=== PATIENT | male | born 1990 ===

== ENCOUNTER 2017-03-16 20:32 | Inpatient (IN) | payer BC, MEDICAID ==
--- NOTE | 2017-03-16 21:25 | ED PDOC ---
HPI: Psych/Substance Abuse Time Seen by Provider: 03/16/17 21:05 Chief Complaint (Nursing): Psychiatric Evaluation Chief Complaint (Provider): suicidal ideations History Per: Patient History/Exam Limitations: no limitations Additional History Per: Patient Additional Complaint(s): 27 y/o male history of alcohol abuse, anxiety disorder, bipolar self-presents with suicidal ideations. Patient states he was discharged from [facility] 4 days ago, and was not able to fill his Lexapro medication. He notes today to have suicidal ideations since then, worse today, with plan to jump in water, which caused him to drink alcohol again. Denies homicidal ideations, hallucinations, acute medical complaints. Past Medical History Reviewed: Historical Data, Nursing Documentation, Vital Signs Vital Signs: Last Vital Signs Temp 98.7 F 03/16/17 20:50 Pulse 99 H 03/16/17 20:50 Resp 16 03/16/17 20:50 BP 128/75 03/16/17 20:50 Pulse Ox 98 03/16/17 20:50 - Medical History PMH: Anxiety, Asthma (Pt stated hx asthma as a child.), Bipolar Disorder, Depression (Psychiatrist in [place]), Schizophrenia, Seizures (Pt reports experiencing seizures r/t etoh withdrawal, last 3 months ago.) Denies: Diabetes, Hepatitis, HIV, HTN, Chronic Kidney Disease, Sexually Transmitted Disease - Surgical History Surgical History: No Surg Hx - Family History Family History: States: Unknown Family Hx - Living Arrangements Living Arrangements: With Family - Social History Current smoker - smoking cessation education provided: Yes SMOKER/PACKS PER DAY:: 1 Alcohol: > 2 Drinks/Day Drugs: Cannabis - Home Medications Home Medications: Ambulatory Orders Medication Instructions Recorded Escitalopram [Lexapro] 10 mg PO DAILY 03/17/17 - Allergies Allergies/Adverse Reactions: Allergies Allergy/AdvReac Type Severity Reaction Status Date / Time No Known Allergies Allergy Verified 07/22/16 10:26 Review of Systems ROS Statement: Except As Marked, All Systems Reviewed And Found Negative Psych: Positive for: Depression, Suicidal ideation Physical Exam - Reviewed Nursing Documentation Reviewed: Yes Vital Signs Reviewed: Yes - Physical Exam Appears: Positive for: Well, Non-toxic, No Acute Distress Head Exam: Positive for: ATRAUMATIC, NORMAL INSPECTION, NORMOCEPHALIC Skin: Positive for: Normal Color Eye Exam: Positive for: Normal appearance ENT: Positive for: Normal ENT Inspection Cardiovascular/Chest: Positive for: Regular Rate, Rhythm Respiratory: Positive for: Normal Breath Sounds Gastrointestinal/Abdominal: Positive for: Normal Exam Back: Positive for: Normal Inspection Extremity: Positive for: Normal ROM Neurologic/Psych: Positive for: Alert, Oriented - Laboratory Results Result Diagrams: 03/16/17 22:27 03/16/17 22:27 - ECG O2 Sat by Pulse Oximetry: 98 Pulse Ox Interpretation: Normal - Radiology X-Ray: Viewed By Me X-Ray Interpretation: No Acute Disease - Progress ED Course And Treament: labs, urine, crisis eval 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 Carreno Medical Decision Making Medical Decision Making: Patient medically stable for psych admission. Disposition - Clinical Impression Clinical Impression: Bipolar disorder - Patient ED Disposition Is Patient to be Admitted: Yes - Disposition Disposition Time: 02:54 Condition: STABLE - Pt Status Changed To: Hospital Disposition Of: Inpatient - Admit Certification Admit to Inpatient:: After my assessment, the patient will require hospitalization for at least two midnights. This is because of the severity of symptoms shown, intensity of services needed, and/or the medical risk in this patient being treated as an outpatient. - POA Present On Arrival: None
[2017-03-16 22:33] LABS: BASO # 0.1 K/uL (0.0-0.2); BASO % 0.7 % (0.0-2.0); EOS # 0.5 K/uL (0.0-0.7); EOS % 5.5 % (0.0-4.0); HEMATOCRIT 44.3 % (35.0-51.0); LYMPH % 32.4 % (20.0-40.0); MEAN CORPUSCULAR HEMOGLOBIN 29.1 pg (27.0-31.0); MEAN CORPUSCULAR HGB CONC 33.4 g/dL (33.0-37.0); MEAN PLATELET VOLUME 8.4 fl (7.2-11.7); MONO # 0.7 K/uL (0.0-0.8); MONO % 7.4 % (0.0-10.0); NEUT # 5.1 K/uL (1.8-7.0); RED CELL DISTRIBUTION WIDTH 13.4 % (11.5-14.5); WHITE BLOOD COUNT 9.4 K/uL (4.8-10.8)
[2017-03-16 22:42] LABS: GLUCOSE,RANDOM 83 mg/dL (75-110)
[2017-03-16 22:43] LABS: ALB/GLOB RATIO 1.5 (1.0-2.1); ALCOHOL SERUM 156 mg/dl (0-10); ALKALINE PHOSPHATASE 92 U/L (38-126); ALT/SGPT 40 U/L (21-72); AST/SGOT 40 U/L (17-59); BILIRUBIN,TOTAL 0.3 mg/dl (0.2-1.3); BLOOD UREA NITROGEN 14 mg/dl (9-20); CALCIUM 8.7 mg/dL (8.4-10.2); CARBON DIOXIDE 23 mmol/L (22-30); CHLORIDE 108 mmol/L (98-107); GFR AFRICAN-AMERICAN > 60; SODIUM 144 mmol/l (132-148)
[2017-03-17 01:39] LABS: RBC URINE 2 /hpf (0-3); URINE BILIRUBIN NEGATIVE (NEGATIVE); URINE BLOOD NEGATIVE (NEGATIVE); URINE COLOR YELLOW (YELLOW); URINE GLUCOSE (UA) NEG (Normal); URINE KETONE NEGATIVE (NEGATIVE); URINE LEUKOCYTE ESTERASE NEG Leu/uL (Negative); URINE PROTEIN NEGATIVE (NEGATIVE); URINE UROBILINOGEN 0.2-1.0 mg/dL (0.2-1.0); WBC URINE < 1 /hpf (0-5)
[2017-03-17 03:10] VITALS: O2SAT 98
[2017-03-17] MEDS ORDERED: DiphenhydrAMINE 50 mg/ml Inj IM PRN (03:29)
[2017-03-17] MEDS ORDERED: Alum-Mag Hydrox-Simethicone Susp (30 mL) PO PRN (03:29)
[2017-03-17] MEDS ORDERED: Magnesium Hydroxide Susp 30 ml UD PO PRN (03:29)
[2017-03-17 07:36] LABS: T4 5.34 ug/dl (5.5-11.0)
[2017-03-17 07:50] LABS: THYROID STIMULATING HORMONE 2.99 mIU/ML (0.46-4.68)
--- NOTE | 2017-03-17 10:13 | RAD ---
HISTORY: clearance COMPARISON: No prior. FINDINGS: LUNGS: No active pulmonary disease. PLEURA: No significant pleural effusion identified, no pneumothorax apparent. CARDIOVASCULAR: Normal. OSSEOUS STRUCTURES: No significant abnormalities. VISUALIZED UPPER ABDOMEN: Normal. OTHER FINDINGS: None. IMPRESSION: No active disease.
--- NOTE | 2017-03-17 13:24 | PCM.PSYCH ---
Initial Psychiatric Evaluation - Initial Psychiatric Evaluation Type of Admission: Voluntary Legal Status: Capacity Chief Complaint (in patient's own words): i messed up Patient's Reaction to Hospitalization: cooperative History of Present Illness and Precipitating Events: pt has history of alcohol dependence, mood disorder- depression. was recently with a prolonged hospitalization and [facility] and was enrolled in a [facility] program at [facility]. pt states he could not fill his medications, became frustrated and starting consuming alcohol again- reports drinking a pint of vodka daily for previous three days. he reports he then started to feel depressed, like a failure, comparing self to his peers. he reports having suicidal thoughts, but did not want to disappoint his mother. he sought help. he is denying any suicidal or homicidal thoughts at this time. Current Medications: Active Medications Generic Name Dose Route Start Last Admin Trade Name Freq PRN Reason Stop Dose Admin Acetaminophen 650 mg 03/17/17 03:29 Tylenol 325mg Tab PO Q4 PRN Pain, moderate (4-7) Al Hydrox/Mg Hydrox/Simethicone 30 ml 03/17/17 03:29 Maalox Plus 30 Ml PO Q4 PRN Dyspepsia Diphenhydramine HCl 50 mg 03/17/17 03:29 Benadryl IM Q6 PRN Extrapyramidal S/S Unable PO Diphenhydramine HCl 50 mg 03/17/17 03:29 Benadryl PO Q6 PRN Extrapyramidal Symptoms Diphenhydramine HCl 50 mg 03/17/17 03:32 Benadryl PO HS PRN Sleep Escitalopram Oxalate 10 mg 03/17/17 09:45 Lexapro PO DAILY NELLY Folic Acid 1 mg 03/17/17 09:45 Folic Acid PO DAILY NELLY Haloperidol 5 mg 03/17/17 03:29 Haldol PO Q4 PRN Agitation Haloperidol Lactate 5 mg 03/17/17 03:29 Haldol IM Q4 PRN Agitation, Unable to Take PO Lorazepam 2 mg 03/17/17 03:29 Ativan IM Q4 PRN Anxiety/Agitation,Unable PO Lorazepam 2 mg 03/17/17 03:29 Ativan PO Q4 PRN Anxiety/Agitation Magnesium Hydroxide 30 ml 03/17/17 03:29 Milk Of Magnesia PO HS PRN Constipation Multivitamins/Minerals 1 tab 03/17/17 09:45 Therapeutic-M Tab PO DAILY NELLY Nicotine 1 patch 03/17/17 09:00 03/17/17 09:53 Nicoderm Cq TD 1 patch DAILY NELLY Administration Thiamine HCl 100 mg 03/17/17 09:45 Vitamin B1 Tab PO DAILY NELLY Trazodone HCl 100 mg 03/17/17 22:00 Desyrel PO HS NELLY Past Psychiatric History - Past Psychiatric History Previous Treatment History: Inpatient Prior Professional Help: multiple previous admissions At [facility]: [facility] last week. History of Abuse: reports he feels traumatized by his past- eludes to his own substance use. not revealing any trauma. History of ETOH/Drug Use: smokes cigarettes- 1/2 to 1 pack daily. reports recent alcohol use. has reported abuse of multiple substances in the past without uds results that support, but at this time states only alcohol. History of Family Illness: denies Pertinent Medical Hx (Current Medical&Sleep Prob, Allergies): Allergies Allergy/AdvReac Type Severity Reaction Status Date / Time No Known Allergies Allergy Verified 07/22/16 10:26 Escitalopram [Lexapro] 10 mg PO DAILY 03/17/17 Review of Systems - Psychiatric Psychiatric: As Per HPI Mental Status Examination - Personal Presentation Personal Presentation: Looks stated age - Affect Affect: Depressed - Motor Activity Motor Activity: Calm - Reliability in Providing Information Reliability in Providing Information: Good - Speech Speech: Organized - Mood Mood: Depressed - Formal Thought Process Formal Thought Process: No Impairment - Obsessions/Compulsions Obsessions: No Compulsions: No - Cognitive Functions Orientation: Person, Place, Situation, Time Sensorium: Alert Attention/Concentration: Attentive Abstract Thinking: [place] Estimate of Intelligence: Average Judgement: Intact, as evidence by: Insight regarding need for hospitalization Memory: Recent intact, as evidence by: Ability to recall events of the day, Remote intact, as evidenced by: Abilit to recall sig. life events - Risk Risk: Suicidal (reports thoughts, previous attempts. 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
--- NOTE | 2017-03-17 18:32 | CP.PCM.CON ---
History of Present Illness - History of Present Illness History of Present Illness: Reason for consult: per hospital protocol HPI: 27 year old male PMH multiple psychiatric admissions for depression and substance abuse with ETOH. Patient is not on any other medications. Currently on ativan, thiamine, and folic acid as inpatient for possible withdrawal. Vitals are stable, no acute distress. ROS: per HPI, 12 systems reviewed and negative PMH: depression and substance abuse PSH: none FH: none SH: ETOH abuse, +marijuana Allergies: NKDA Vitals: reviewed and currently stable Exam: GEN: WDWN, alert, cooperative HEENT: NCAT, PERRL, EOMI NECK: supple, no JVD, no lymphadenopathy CARDIAC: +S1S2 RRR LUNG: CTAB No WRR ABD: SOFT NT ND BSX4 NO MASSES NO HSM EXT: +pedal pulses, equal strength NEURO: AAOx3 SKIN warm, dry PSYCH normal mood, normal affect Labs: 03/16/17 22:27 03/16/17 22:27 Active Medications: 03/17/17 03:29 Acetaminophen [Tylenol 325mg tab] 650 mg PO Q4 PRN Aluminum Hydroxide/Magnesium [Maalox Plus 30 ml] 30 ml PO Q4 PRN DiphenhydrAMINE [Benadryl] 50 mg IM Q6 PRN DiphenhydrAMINE [Benadryl] 50 mg PO Q6 PRN Haloperidol Lactate [Haldol] 5 mg IM Q4 PRN Haloperidol [Haldol] 5 mg PO Q4 PRN LORazepam [Ativan] 2 mg IM Q4 PRN LORazepam [Ativan] 2 mg PO Q4 PRN Magnesium Hydroxide [Milk Of Magnesia] 30 ml PO HS PRN 03/17/17 03:32 DiphenhydrAMINE [Benadryl] 50 mg PO HS PRN 03/17/17 09:00 Nicotine 14 mg/24 hr [Nicoderm CQ] 1 patch TD DAILY 03/17/17 09:45 Escitalopram [Lexapro] 10 mg PO DAILY Folic Acid 1 mg PO DAILY Multimineral/Multivitamin [Therapeutic-M Tab] 1 tab PO DAILY Thiamine [Vitamin B1 Tab] 100 mg PO DAILY 03/17/17 22:00 traZODone [Desyrel] 100 mg PO HS Assessment and Plan: 27 year old male PMH multiple psychiatric admissions for depression and substance abuse with ETOH. Patient is not on any other medications. Currently on ativan, thiamine, and folic acid as inpatient for possible withdrawal. Vitals are stable, no acute distress. Depression management per psychiatric team ETOH abuse Ativan, folic acid, thiamine Past Patient History - Infectious Disease Hx of Infectious Diseases: None - Tetanus Immunizations Tetanus Immunization: Unknown - Past Medical History & Family History Past Medical History?: Yes - Past Social History Alcohol: > 2 Drinks/Day Drugs: Cannabis - CARDIAC Hx Hypertension: No - PULMONARY Hx Asthma: Yes (Pt stated hx asthma as a child.) - NEUROLOGICAL Hx Seizures: Yes (Pt reports experiencing seizures r/t etoh withdrawal, last 3 months ago.) - HEENT Hx HEENT Problems: No - RENAL Hx Chronic Kidney Disease: No - ENDOCRINE/METABOLIC Hx Endocrine Disorders: No - HEMATOLOGICAL/ONCOLOGICAL Hx Human Immunodeficiency Virus (HIV): No - INTEGUMENTARY Hx Dermatological Problems: No - MUSCULOSKELETAL/RHEUMATOLOGICAL Hx Musculoskeletal Disorders: No Hx Falls: No - GASTROINTESTINAL Hx Gastrointestinal Disorders: No - GENITOURINARY/GYNECOLOGICAL Hx Sexually Transmitted Disorders: No - PSYCHIATRIC Hx Substance Use: Yes - SURGICAL HISTORY Hx Surgeries: Yes Other/Comment: repair of Lip laceration - ANESTHESIA Hx Anesthesia: Yes (local anesthesia) Hx Anesthesia Reactions: No Hx Malignant Hyperthermia: No Has any member of the family had a problem w/ anesthesia?: No Meds Allergies/Adverse Reactions: Allergies Allergy/AdvReac Type Severity Reaction Status Date / Time No Known Allergies Allergy Verified 07/22/16 10:26 - Medications Medications: Current Medications Acetaminophen (Tylenol 325mg Tab) 650 mg PO Q4 PRN PRN Reason: Pain, moderate (4-7) Al Hydrox/Mg Hydrox/Simethicone (Maalox Plus 30 Ml) 30 ml PO Q4 PRN PRN Reason: Dyspepsia Diphenhydramine HCl (Benadryl) 50 mg IM Q6 PRN PRN Reason: Extrapyramidal S/S Unable PO Diphenhydramine HCl (Benadryl) 50 mg PO Q6 PRN PRN Reason: Extrapyramidal Symptoms Diphenhydramine HCl (Benadryl) 50 mg PO HS PRN PRN Reason: Sleep Escitalopram Oxalate (Lexapro) 10 mg PO DAILY NELLY Folic Acid (Folic Acid) 1 mg PO DAILY NELLY Haloperidol (Haldol) 5 mg PO Q4 PRN PRN Reason: Agitation Haloperidol Lactate (Haldol) 5 mg IM Q4 PRN PRN Reason: Agitation, Unable to Take PO Lorazepam (Ativan) 2 mg IM Q4 PRN PRN Reason: Anxiety/Agitation,Unable PO Lorazepam (Ativan) 2 mg PO Q4 PRN PRN Reason: Anxiety/Agitation Last Admin: 03/17/17 14:01 Dose: 2 mg Magnesium Hydroxide (Milk Of Magnesia) 30 ml PO HS PRN PRN Reason: Constipation Multivitamins/Minerals (Therapeutic-M Tab) 1 tab PO DAILY [facility] Nicotine (Nicoderm Cq) 1 patch TD DAILY NELLY Last Admin: 03/17/17 09:53 Dose: 1 patch Thiamine HCl (Vitamin B1 Tab) 100 mg PO DAILY NELLY Trazodone HCl (Desyrel) 100 mg PO HS [facility] Results - Vital Signs Recent Vital Signs: Last Vital Signs Temp 98.7 F 03/17/17 02:44 Pulse 80 03/17/17 03:35 Resp 16 03/17/17 03:35 BP 128/75 03/17/17 02:44 Pulse Ox 98 03/17/17 03:49 - Labs Result Diagrams: 03/16/17 22:27 03/16/17 22:27 Labs: Laboratory Results - last 24 hr 03/17/17 03/17/17 03/17/17 01:29 01:29 06:53 Hemoglobin A1c Triglycerides 323 H D Cholesterol 163 LDL Cholesterol Direct 91 HDL Cholesterol 40 Thyroxine (T4) 5.34 L TSH 3rd Generation 2.99 Urine Color Yellow Urine Clarity Clear Urine pH 7.0 Ur Specific [place] 1.014 Urine Protein Negative Urine Glucose (UA) Neg Urine Ketones Negative Urine Blood Negative Urine Nitrate Negative Urine Bilirubin Negative Urine Urobilinogen 0.2-1.0 Ur Leukocyte Esterase Neg Urine RBC (Auto) 2 Urine Microscopic WBC < 1 Urine Opiates Screen Negative Urine Methadone Screen Negative Ur Barbiturates Screen Negative Ur Phencyclidine Scrn Negative Ur Amphetamines Screen Negative U Benzodiazepines Scrn Negative U Oth Cocaine Metabols Negative U Cannabinoids Screen Negative RPR 03/17/17 03/17/17 06:53 06:53 Hemoglobin A1c 5.3 Triglycerides Cholesterol LDL Cholesterol Direct HDL Cholesterol Thyroxine (T4) TSH 3rd Generation Urine Color Urine Clarity Urine pH Ur Specific [place] Urine Protein Urine Glucose (UA) Urine Ketones Urine Blood Urine Nitrate Urine Bilirubin Urine Urobilinogen Ur Leukocyte Esterase Urine RBC (Auto) Urine Microscopic WBC Urine Opiates Screen Urine Methadone Screen Ur Barbiturates Screen Ur Phencyclidine Scrn Ur Amphetamines Screen U Benzodiazepines Scrn U Oth Cocaine Metabols U Cannabinoids Screen RPR Nonreactive
[2017-03-17] MEDS: Multivitamin With Minerals Tab PO SCH (19:37)
[2017-03-18] MEDS: Multivitamin With Minerals Tab PO SCH (08:52)
--- NOTE | 2017-03-18 12:13 | PCM.PYCHPN ---
Psychiatric Progress Note - Psychiatric Progress Note Patient seen today, length of contact: discussed with team Patient Chief Complaint: i feel like i let everybody down Problems Identified/Issues Discussed: pt reports he was nervous to see staff again as he feels he has disappointed everyone. talks in team about how the medicine was working and he just blew it by not taking at and drinking. reports he compares himself negatively to his friends and feels they aren't supportive and dismiss his issues. he is minimizing the positive aspect that he did have a month of sobriety and did complete a program. he is reporting his sleep is ok. reports still being depressed. he reports he wants to go to an inpatient rehab program. Medication Change: No Medical Record Reviewed: Yes Mental Status Examination - Cognitive Function Orientation: Person, Place, Situation, Time Memory: Intact Attention: WNL Concentration: WNL Association: WNL Fund of Knowledge: [facility] Decription of patient's judgement and insights: fair - Mood Mood: Depressed - Affect Affect: Constricted, Depressed - Speech Speech: Soft - Formal Thought Process Formal Thought Process: No Impairment Psychotic Thoughts and Behaviors: denies a/v hallucinations - Suicidal Ideation Suicidal Ideation: No Plan: denies current si. wants to live - Homicidal Ideation Homicidal Ideation: No Goal/Treatment Plan - Goal/Treatment Plan Need for Continued Stay: Remain at risks for inpatient hospitalization, Discharge may exacerbated symptoms Progress Toward Problem(s) and Goals/Treatment Plan: alcohol dependence depression recurrent pt motivated to get treatment for his alcohol dependence depression has responded to current meds and we will monitor how he does with the reintroduction of these medications no evidence of alcohol withdrawal refer to in treatment for alcohol dependence Estimated Date of D/C: 03/20/17
[2017-03-19] MEDS: Multivitamin With Minerals Tab PO SCH (08:34)
--- NOTE | 2017-03-19 11:53 | PCM.PYCHPN ---
Psychiatric Progress Note - Psychiatric Progress Note Patient seen today, length of contact: discussed with team Patient Chief Complaint: i was so hopeful yesterday Problems Identified/Issues Discussed: pt disappointed he was not admitted to [facility]. states he feels a little better. still depressed/axious and unsure of his future. he is now discussing working on his ged. he reports if he were home he would start drinking. he denies medication side effects. Medication Change: No (t/c increasing lexapro) Medical Record Reviewed: Yes Mental Status Examination - Cognitive Function Orientation: Person, Place, Situation, Time Memory: Intact Attention: WNL Concentration: WNL Association: [facility] [place] Fund of Knowledge: [facility] [place] Decription of patient's judgement and insights: fair - Mood Mood: Depressed - Affect Affect: Constricted, Depressed - Speech Speech: Soft - Formal Thought Process Formal Thought Process: No Impairment Psychotic Thoughts and Behaviors: denies a/v hallucinations - Suicidal Ideation Suicidal Ideation: No Plan: denies any intent to harm self - Homicidal Ideation Homicidal Ideation: No Goal/Treatment Plan - Goal/Treatment Plan Need for Continued Stay: Remain at risks for inpatient hospitalization, Discharge may exacerbated symptoms Progress Toward Problem(s) and Goals/Treatment Plan: alcohol dependence depression recurrent pt motivated to get treatment for his alcohol dependence depression has responded to current meds and we will monitor how he does with the reintroduction of these medications- he is improving and will consider lexapro increase if needed no evidence of alcohol withdrawal refer to in treatment for alcohol dependence Estimated Date of D/C: 03/20/17
[2017-03-20] MEDS: Multivitamin With Minerals Tab PO SCH (08:48)
[2017-03-20 08:51] VITALS: BP 154/86; PULSE 77; RESP 18; TEMP 97.2
--- NOTE | 2017-03-20 14:59 | PCM.PYCHDC ---
Mental Status Examination - Mental Status Examination Orientation: Person, Place, Situation, Time Memory: Intact Mood: Anxious (regarding discharge) Affect: Broad Speech: Appropriate Attention: WNL Concentration: WNL Association: WNL Fund of Knowledge: WNL Formal Thought Process: No Impairment Description of patient's judgement and insight: fair Psychotic Thoughts and Behaviors: denies a/v hallucinations Suicidal Ideation: No Current Homicidal Ideation?: No Plan: pt denies any suicidal or homicidal thoughts/plans or intent Discharge Summary - Discharge Note Reason for Hospitalization: pt expressed being depressed and feeling hopeless and passively suicidal in context of relapse of alcohol Psychiatric History (includes Medical, Family, Personal Hx): history of treatment for depression; recent discharge from hosptal Consultations:: List each consultation separately and include: 1. Reason for request. 2. Findings. 3. Follow-up Consultations: seen by hospitalist Summary of Hospital Course include:: 1. Description of specific treatment plan utilized for patients during their course of treatmen. 2. Summarize the time- course for resolution of acute symptoms and/or regressed behaviors. 3. Describe issues identified and worked on during hospitalization. 4. Describe medication utilized. 5. Describe medical problems identified and treated. 6. Reassessment of suicide risk Summary of Hospital Course: pt has history of alcohol dependence, mood disorder- depression. was recently with a prolonged hospitalization and [facility] and was enrolled in a [facility] program at [facility]. pt states he could not fill his medications, became frustrated and starting consuming alcohol again- reports drinking a pint of vodka daily for previous three days. he reports he then started to feel depressed, like a failure, comparing self to his peers. he reports having suicidal thoughts, but did not want to disappoint his mother. he sought help. he is denying any suicidal or homicidal thoughts at this time. hospital course: pt was admitted to [facility] and oriented to the unit. pt was placed on routine safety protocols. pt was started back on his previous medications and observed for alcohol withdrawal. pt was adherent to medications and was agreeable to referral to in rehab programs. he attended groups. he was accepted at [facility] and was discharged to that program via [facility]. - Final Diagnosis (DSM 5) Condition upon Discharge: STABLE DSM 5: alcohol dependence major depression recurrent moderate Disposition: OTHER INSTITUTION Follow-up Treatment Plan: follow up with treatment as directed take medications as prescribed do not use alcohol, tobacco or other illicit substances attend your substance abuse treatment at [facility] inform staff there if any suicidal or homicidal thoughts Prescriptions/Medication Reconciliation: Escitalopram [Lexapro] 10 mg PO DAILY #30 tab Folic Acid 1 mg PO DAILY #30 tab Multimineral/Multivitamin [Therapeutic-M Tab] 1 tab PO DAILY #30 tab Nicotine 14 mg/24 hr [Nicoderm CQ] 1 patch TD DAILY #30 patch Thiamine [Vitamin B1 Tab] 100 mg PO DAILY #30 tab traZODone [Desyrel] 100 mg PO HS #30 tab - Smoking Cessation Smoking Cessation Medication prescribed: Yes - Antipsychotic Medications Pt discharged on 2 or more routine antipsychotic medications: No
== END 2017-03-20 11:36 | disposition home or self-care (01) | DRG 897 ==
LOC: H.ER 20:32 → H.ERHOLD 03-17 00:47 → H.PSYCH 03-17 03:20
PROVIDERS: ADMIT Psychiatry & Neurology Psychiatry; ATTEND Psychiatry & Neurology Psychiatry
PROC: GZHZZZZ Group Psychotherapy (ICD-10-PCS; principal; 2017-03-17)
PROC: GZ58ZZZ Individual Psychotherapy, Cognitive-Behavioral (ICD-10-PCS; 2017-03-17)
DX: F10.229 Alcohol dependence with intoxication, unspecified (principal); R45.851 Suicidal ideations; F33.1 Major depressive disorder, recurrent, moderate; F12.10 Cannabis abuse, uncomplicated; Y90.6 Blood alcohol level of 120-199 mg/100 ml; F41.9 Anxiety disorder, unspecified; F17.210 Nicotine dependence, cigarettes, uncomplicated; J45.909 Unspecified asthma, uncomplicated